=== PATIENT | female | born 1945 | race Caucasian/White ===

== ENCOUNTER 2016-04-24 06:50 | Inpatient (IN) | payer OTHER ==
[2016-04-24] VITALS (8 sets, daily range): BP systolic 89–135; BP diastolic 48–83
[~2016-04-24] VITALS: Ht 167.6 cm; Wt 54.8 kg
--- NOTE | 2016-04-24 07:40 | DIAGNOSTIC IMAGING REPORT ---
PROCEDURE: XR CHEST 1 VIEW INDICATION: HYPOXIA, initial encounter TECHNIQUE: Portable AP view 07:15 a.m. COMPARISON: Chest x-ray 10/30/2012 FINDINGS: New extensive right lung alveolar opacities. Biapical scarring. Heart size, mediastinum and pulmonary vessels are normal. Mild levoscoliosis. IMPRESSION: 1. Extensive right lung infiltrates suggestive of pneumonia.
--- NOTE | 2016-04-24 08:28 | ED NURSING NOTES ---
Clinical Report - Nurs[facility] [address] [place] [address] 04/24/2016 6:51 Patient: PHILLIP FERMIN I TRIAGE Triage time 06:55 Apr 24 2016. Acuity: LEVEL 3. Chief Complaint: ALTERED MENTAL STATUS and CONFUSED. Alert. LEATHA COMA SCORE: Leatha Coma Scale: 15- eyes open spontaneously (4); best verbal response- oriented x 4 (5); best motor response- obeys commands (6). --07:21 Kolby Mac R.N. 06:55 04/24/16. BP: 130/69. HR: 115. RR: 16. O2 saturation: 95% on non-rebreather at 13 liters/minute. Temp: 103 F (oral). Pain level now: 610. Additional comments: Lower Back. --07:21 Kolby Mac R.N. Chief Complaint: (Per , pt overdosed on muscle relaxers, but doesn't know what drug it was). --08:00 Sherry Ochoa R.N. Weight: 52.1 kg stated. Height/Length: 66 inches Per Patient. BMI: 18.5. --06:58 Kolby Mac R.N. Medications Lyrica Oral. --07:13 Kolby Mac R.N. HTN Rx. --07:13 Kolby Mac R.N. Allergies No Known Drug Allergy. --07:08 Kolby Mac R.N. Medication/allergy information source: the patient and patient's spouse. --07:21 Kolby Mac R.N. History Historian: patient. Arrived (AID 99). Primary physician (unknown). ( Lethargic affect associated with a fever. found her this morning on the beside the bed and she was incoherent and couldn't get back up on her own). This started today. Patient was last known well (about 10 hours ago). Onset. (found by about 2 hours ago). She has had weakness and trouble walking. 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 PAST MEDICAL HX: Denies current . SURGERY HX: No history of previous surgery. SOCIAL HX: Heavy tobacco smoker (cigarette)- 1-2 packs per day. History of drug use. (muscle relaxors and hydrocodone). No alcohol use. No infectious disease exposure. ABUSE ASSESSMENT: No report of abuse. FALL RISK ASSESSMENT: Fall risk assessment completed. No fall risk identified. NUTRITIONAL RISK ASSESSMENT: The nutritional risk assessment revealed no deficiencies. FUNCTIONAL ASSESSMENT: Functional assessment: no impairments noted. LEARNING NEEDS ASSESSMENT: The learning needs assessment revealed no barriers. SKIN INTEGRITY ASSESSMENT: Skin integrity risk assessment completed. No skin integrity risk identified. --07:21 Kolby Mac R.N. SOCIAL HX: Heavy tobacco smoker (cigarette)- 1-2 packs per day. --07:59 Sherry Ochoa R.N. PROBLEMS: Pelvic fx. --07:11 Kolby Mac R.N. Hypertension. --07:14 Kolby Mac R.N. ADDITIONAL SURGERIES: no known surgeries. Interventions ID band on patient. To treatment room. --07:21 Kolby Mac R.N. PHYSICAL ASSESSMENT To room via stretcher. GENERAL / NEURO / PSYCH: Decreased awareness. Patient appears neat and clean. RESPIRATORY: Respirations not labored. CVS: Cardiac rhythm: sinus tachycardia. Capillary refill less than 2 seconds. GI / : Abdomen soft. SKIN: Skin is warm and dry. Poor skin turgor. --07:17 Kolby Mac R.N. NURSING PROGRESS NOTES 07:05 04/24/2016 Site #1 started via IV in the left forearm with an 18g angiocath, with aseptic technique and good blood return; one attempt. Blood drawn: rainbow set. Labeled in the presence of the patient and sent to the lab. Saline lock flushed with 10 mL saline (start by Kolby Reyes RN). --07:20 Kolby Mac R.N. 07:24 04/24/16. Oxygen administered by nasal cannula at 4 liters (and CO2 monitor placed, CO2 36). Patient identifiers checked. Call light placed in reach. Bed placed in lowest position. Patient ready for evaluation- chart flagged. --07:24 Sherry Ochoa R.N. 07:25 04/24/16. ekg monitor tech, pulse oximeter, end tidal CO2 monitor and NIBP monitor placed on patient; cardiac surgeon- Lead II and V1; monitor alarms on. --07:25 Sherry Ochoa R.N. Care transferred and report received (from Kolby Kingsley). --07:25 Sherry Ochoa R.N. 07:50 04/24/16. Patient ID band checked for patient name and birthdate: family confirmed. Catheterized urine collected; sample sent to lab for urinalysis, culture and drug screen. Specimen labeled in the presence of the patient. --07:50 Sherry Ochoa R.N. ( Raya care given prior to cath procedure.). --07:50 Sherry Ochoa R.N. 07:45 04/24/16. BP: 116/61. HR: 107. RR: 18. O2 saturation: 97% on Venti mask at 8 liters/minute. End tidal CO2: 36 mmHg. Pain level now: 0/10. --08:02 Sherry Ochoa R.N. 08:11 04/24/2016 Started bag #1 1000 mL IV Fluids IV NS (Saline); at 1000 mL/hr via site #1 via IV pump. Confirmed 5 rights. --08:11 Sherry Ochoa R.N. 08:12 04/24/2016 Started 2 gm of Ceftriaxone IVPB in bag #1 50 mL; at 150 mL/hr over 20 minute(s) via site #1; Allergies verified and confirmed 5 rights. --08:12 Sherry Ochoa R.N. 08:34 04/24/2016 Ceftriaxone IVPB Discontinued. Total amount infused: 50 mL. --08:34 Sherry Ochoa R.N. ( H/P forms on chart.). --08:52 Olive Santana ER Tech1 08:59 04/24/2016 Duoneb (Ipratropium-Albuterol) Neb TX Nebulizer 1 unit dose given. Given by the respiratory therapist. Allergies verified and confirmed 5 rights. --08:59 Jonnie Woodard 09:01 04/24/2016 Started 500 mg of Zithromax (Azithromycin) IVPB; at 255 mL/hr over 1 hour(s) via site #1 --09:01 Luther Schroeder R.N. 09:12 04/24/2016 SOLU-MEDROL (MethylPREDNISolone Sodium Succ) IVP 125 mg given over 2 minute(s) via site #1. --09:27 Luther Schroeder R.N. 09:00. ( Patient sleeping in bed 2, sitting up in high fowlers. On oxy-mask, receiving neb treatment via mask. On cardiac surgeon, Sinus Tach with frequent uni-focal PVCs. Breath sounds with wheezes on left, breath sounds absent on right. Dr Hardin notified.). --09:33 Luther Schroeder R.N. 09:15. ( Dr Currie to examine patient). --09:40 Luther Schroeder R.N. 09:25. ( Discussed intubation with patient who is more awake now and patient refuses intubation. Dr Currie notified and will see patient). --09:41 Luther Schroeder R.N. 10:11 04/24/2016 Started 900 mg of Clindamycin IVPB in bag #1 50 mL; at 50 mL/hr over 1 minute(s) via site #1 --10:26 Luther Schroeder R.N. 10:17 04/24/2016 IV Fluids IV NS Discontinued: bag #1 infused. Total amount infused: 1000 mL. --10:42 Luther Schroeder R.N. 10:18 04/24/2016 Started bag #2 1000 mL IV Fluids IV NS (Saline); at 250 mL/hr over 4 hour(s) via site #1 --10:43 Luther Schroeder R.N. 10:19 04/24/2016 Zithromax IVPB Discontinued: bag #1 infused. Total amount infused: 50 mL. --10:44 Luther Schroeder R.N. 10:45 04/24/2016 Clindamycin IVPB Discontinued: bag #1 infused. Total amount infused: 50 mL. --10:45 Luther Schroeder R.N. 10:45 04/24/16. BP: 94/51. HR: 88. RR: 12. O2 saturation: 97%. Temp: 98 F. End tidal CO2: 38 mmHg. Pain level now: 010. --10:59 Luther Schroeder R.N. 08:45 04/24/16. BP: 101/47. HR: 100. RR: 17. O2 saturation: 97%. End tidal CO2: 36 mmHg. Pain level now: 010. --11:02 Luther Schroeder R.N. 09:45 04/24/16. BP: 97/53. HR: 100 (regular and normal rate). RR: 20. O2 saturation: 92%. End tidal CO2: 35 mmHg. Pain level now: 010. --11:04 Luther Schroeder R.N. 11:20 04/24/2016 Site #[address] upon admission; patent, no pain and no signs of infection or infiltration. Good blood return present. Flushed; flushes easily. --02:58 Kolby Mac R.N. 11:20 04/24/2016 IV Fluids IV NS Continued: upon admission at the rate of 250 mL/hr. 750 mL remaining bag #2. IV patency established. IV site checked: no pain, redness, or swelling. IV flushed thoroughly. --02:59 Kolby Mac R.N. DISPOSITION / DISCHARGE Departure time: 1120. --02:49 Kolby Mac R.N. 11:20 04/14/16. Admitted to the Critical Care Unit. Transported via stretcher by nurse with monitor, IV and O2. Report was given to a nurse via a phone call. Report included patient's care, treatment, medications, reviewed medication reconcilliation, and condition (including any recent changes or anticipated changes). All questions were answered. Report was acknowledged and care was transferred. Patient's personal items; items were placed in belongings bag and transported with the patient. --02:55 Kolby Mac R.N. Locked/Released at 04/25/2016 3:00 by Kolby Mac R.N.
--- NOTE | 2016-04-24 08:28 | ED ORDER SUMMARY ---
..... Patient: PHILLIP FERMIN I OrderSheet [facility] VisitID: [id number] [place] [address] 71y, F Registration Date/Time: 04/24/2016 ORDER SHEET Weight: 52.1 kg (stated) Allergies: No Known Drug Allergy GENERAL ORDERS: Chest 1V Urgent (07:02 04/24/2016 Luh NIETO) (Ack 7:18 CHagjose ER Metallurgist Process) (7:20 JRomanelli R.N.) Shellfish Manager (Continuous) (07:02 04/24/2016 Luh NIETO) (7:18 Dusty R.N.) (Ack 7:18 Mayra ER Metallurgist Process) CBC w Diff Urgent (07:03 04/24/2016 Luh NIETO) (Ack 7:18 Mayra ER Metallurgist Process) (8:12 LSullivan R.N.) CMP Urgent (07:03 04/24/2016 Luh NIETO) (Ack 7:18 Mayra ER Metallurgist Process) (7:20 JRomanelli R.N.) UA-Culture if indicated Urgent (07:03 04/24/2016 Luh NIETO) (Ack 7:18 Mayra ER Metallurgist Process) (7:57 LSullivan R.N.) PT with INR Urgent (07:03 04/24/2016 Luh NIETO) (Ack 7:18 Mayra ER Metallurgist Process) (7:20 Dusty R.N.) PTT Urgent (07:03 04/24/2016 Luh NIETO) (Ack 7:18 Mayra ER Metallurgist Process) (7:20 Marlyselli R.N.) Amylase Urgent (07:03 04/24/2016 Luh NIETO) (Ack 7:18 Mayra ER Metallurgist Process) (7:20 Dusty R.N.) Lipase Urgent (07:03 04/24/2016 Luh NIETO) (Ack 7:18 Mayra ER Metallurgist Process) (7:20 Marlyselli R.N.) CPK Urgent (07:03 04/24/2016 Luh NIETO) (Ack 7:18 Mayra ER Metallurgist Process) (7:20 Marlyselli R.N.) Troponin-I Urgent (07:03 04/24/2016 Luh NIETO) (Ack 7:18 CHagerty ER Metallurgist Process) (7:20 JRomanelli R.N.) Urine Drug Screen Urgent (07:03 04/24/2016 Luh NIETO) (Ack 7:18 CHagerty ER Metallurgist Process) (8:14 LSullivan R.N.) Ethyl Alcohol Urgent (07:03 04/24/2016 Luh NIETO) (Ack 7:18 CHagerty ER Metallurgist Process) (7:20 JRomanelli R.N.) ABG (G) Urgent (07:03 04/24/2016 Luh NIETO) (Ack 7:18 CHagerty ER Metallurgist Process) (8:12 LSullivan R.N.) BNP Urgent (07:03 04/24/2016 Luh NIETO) (Ack 7:18 CHagerty ER Metallurgist Process) (7:20 JRomanelli R.N.) Oxygen (2 L/min) (NC) (07:03 04/24/2016 Luh NIETO) (7:18 JRomanelli R.N.) (Ack 7:18 CHagerty ER Metallurgist Process) Pulse oximeter (07:03 04/24/2016 Luh NIETO) (7:18 JRomanelli R.N.) (Ack 7:18 CHagerty ER Metallurgist Process) EKG - ER Stat (07:03 04/24/2016 Luh NIETO) (Ack 7:18 CHagerty ER Metallurgist Process) (7:57 LNations ER Tech1) PCT (Procalcitonin) Urgent (07:55 04/24/2016 Luh NIETO) (8:12 LSullivan R.N.) Rapid Influenza Screen (Nasal Pharyngeal) (SCIENTIFIC TECHNICAL WRITER) Urgent (07:56 04/24/2016 Luh NIETO) (9:01 GMarshall R.N.) Blood Culture (No) (N/A) Urgent (07:56 04/24/2016 Luh NIETO) (8:12 LSullivan R.N.) MEDICATION ORDERS: DuoNeb Neb Tx 1 unit dose (NOW) (08:44 04/24/2016 Luh NIETO) (8:59 MRobideau) IV FLUIDS: IV Saline Lock (07:03 04/24/2016 Luh NIETO) (7:20 JRomanelli R.N.) IV NS : initial bolus 1000 mL (1000 mL/hr), then 125 mL/hr for 4h (NOW); Urgent (07:55 04/24/2016 Luh NIETO) (8:11 LSullivan R.N.) Ceftriaxone IV 2 gm/50mL (NOW) (07:57 04/24/2016 Luh NIETO) (8:12 LSullivan R.N.) Zithromax IV 500 mg/250 mL (NOW) (07:58 04/24/2016 Luh NIETO) (9:01 GMarshall R.N.) Clindamycin IV 900 mg/50mL (NOW) (08:41 04/24/2016 Luh NIETO) (Ack 9:42 GMarshall R.N.) (10:26 GMarshall R.N.) Solu-MEDROL IV 125 mg (NOW) (08:43 04/24/2016 Luh NIETO) (9:27 GMarshall R.N.) ORDER SHEET NOTES: [Electronically signed by Lyle Hardin MD (10:14 04/24/2016)] [Electronically signed by Kolby Mac R.N. (03:00 04/25/2016)] [Electronically locked/signed by Kolby Mac R.N. (03:00 04/25/2016)]
--- NOTE | 2016-04-24 08:28 | ED ORDER SUMMARY ---
..... Patient: PHILLIP FERMIN I OrderSheet [facility] VisitID: [id number] [place] [address] 71y, F Registration Date/Time: 04/24/2016 ORDER SHEET Weight: 52.1 kg (stated) Allergies: No Known Drug Allergy GENERAL ORDERS: Chest 1V Urgent (07:02 04/24/2016 Luh NIETO) (Ack 7:18 CHagjose ER Seismology Technical Officer) (7:20 JRomanelli R.N.) Weed Sprayer (Continuous) (07:02 04/24/2016 Luh NIETO) (7:18 Dusty R.N.) (Ack 7:18 Mayra ER Seismology Technical Officer) CBC w Diff Urgent (07:03 04/24/2016 Luh NIETO) (Ack 7:18 Mayra ER Seismology Technical Officer) (8:12 LSullivan R.N.) CMP Urgent (07:03 04/24/2016 Luh NIETO) (Ack 7:18 Mayra ER Seismology Technical Officer) (7:20 JRomanelli R.N.) UA-Culture if indicated Urgent (07:03 04/24/2016 Luh NIETO) (Ack 7:18 Mayra ER Seismology Technical Officer) (7:57 LSullivan R.N.) PT with INR Urgent (07:03 04/24/2016 Luh NIETO) (Ack 7:18 Mayra ER Seismology Technical Officer) (7:20 Dusty R.N.) PTT Urgent (07:03 04/24/2016 Luh NIETO) (Ack 7:18 Mayra ER Seismology Technical Officer) (7:20 Marlyselli R.N.) Amylase Urgent (07:03 04/24/2016 Luh NIETO) (Ack 7:18 Mayra ER Seismology Technical Officer) (7:20 Dusty R.N.) Lipase Urgent (07:03 04/24/2016 Luh NIETO) (Ack 7:18 Mayra ER Seismology Technical Officer) (7:20 Marlyselli R.N.) CPK Urgent (07:03 04/24/2016 Luh NIETO) (Ack 7:18 Mayra ER Seismology Technical Officer) (7:20 Marlyselli R.N.) Troponin-I Urgent (07:03 04/24/2016 Luh NIETO) (Ack 7:18 CHagerty ER Seismology Technical Officer) (7:20 JRomanelli R.N.) Urine Drug Screen Urgent (07:03 04/24/2016 Luh NIETO) (Ack 7:18 CHagerty ER Seismology Technical Officer) (8:14 LSullivan R.N.) Ethyl Alcohol Urgent (07:03 04/24/2016 Luh NIETO) (Ack 7:18 CHagerty ER Seismology Technical Officer) (7:20 JRomanelli R.N.) ABG (G) Urgent (07:03 04/24/2016 Luh NIETO) (Ack 7:18 CHagerty ER Seismology Technical Officer) (8:12 LSullivan R.N.) BNP Urgent (07:03 04/24/2016 Luh NIETO) (Ack 7:18 CHagerty ER Seismology Technical Officer) (7:20 JRomanelli R.N.) Oxygen (2 L/min) (NC) (07:03 04/24/2016 Luh NIETO) (7:18 JRomanelli R.N.) (Ack 7:18 CHagerty ER Seismology Technical Officer) Pulse oximeter (07:03 04/24/2016 Luh NIETO) (7:18 JRomanelli R.N.) (Ack 7:18 CHagerty ER Seismology Technical Officer) EKG - ER Stat (07:03 04/24/2016 Luh NIETO) (Ack 7:18 CHagerty ER Seismology Technical Officer) (7:57 LNations ER Tech1) PCT (Procalcitonin) Urgent (07:55 04/24/2016 Luh NIETO) (8:12 LSullivan R.N.) Rapid Influenza Screen (Nasal Pharyngeal) (CNC MANUFACTURING ENGINEER) Urgent (07:56 04/24/2016 Luh NIETO) (9:01 GMarshall R.N.) Blood Culture (No) (N/A) Urgent (07:56 04/24/2016 Luh NIETO) (8:12 LSullivan R.N.) MEDICATION ORDERS: DuoNeb Neb Tx 1 unit dose (NOW) (08:44 04/24/2016 Luh NIETO) (8:59 MRobideau) IV FLUIDS: IV Saline Lock (07:03 04/24/2016 Luh NIETO) (7:20 JRomanelli R.N.) IV NS : initial bolus 1000 mL (1000 mL/hr), then 125 mL/hr for 4h (NOW); Urgent (07:55 04/24/2016 Luh NIETO) (8:11 LSullivan R.N.) Ceftriaxone IV 2 gm/50mL (NOW) (07:57 04/24/2016 Luh NIETO) (8:12 LSullivan R.N.) Zithromax IV 500 mg/250 mL (NOW) (07:58 04/24/2016 Luh NIETO) (9:01 GMarshall R.N.) Clindamycin IV 900 mg/50mL (NOW) (08:41 04/24/2016 Luh NIETO) (Ack 9:42 GMarshall R.N.) (10:26 GMarshall R.N.) Solu-MEDROL IV 125 mg (NOW) (08:43 04/24/2016 Luh NIETO) (9:27 GMarshall R.N.) ORDER SHEET NOTES: [Electronically signed by Lyle Hardin MD (10:14 04/24/2016)] [Electronically signed by Kolby Mac R.N. (03:00 04/25/2016)] [Electronically locked/signed by Kolby Mac R.N. (03:00 04/25/2016)]
--- NOTE | 2016-04-24 08:28 | ED CLINICAL REPORT ---
Clinical Report - Physicians/Mid Levels [facility] [address] [place] [address] 04/24/2016 6:51 Patient: PHILLIP FERMIN I Time Seen: 07:00. Arrived- By private vehicle. Historian- patient. History limited by altered mental status and vague historian. Physical Exam limited by poor cooperation. HISTORY OF PRESENT ILLNESS Chief Complaint: FEVER, DYSPNEA, COUGH and WEAKNESS. This started last night and is still present. It was gradual in onset and has been constant and waxing/waning. The patient has had fatigue and weakness. (the patient is only able to provide a limited history. However her says that recently she was treated as an outpatient for pneumonia. Initially she apparently was feeling better but then over the past few days felt that it was getting worse again. last night he said that she was restless throughout the night and this morningshe tried to get up and collapsed and was not able to get back up. She complains of a cough but is not able to tell me whether or not she produces any sputum. EMS reports that she was markedly hypoxic.). REVIEW OF SYSTEMS The patient has had chills, muscle aches, fatigue, a cough and difficulty breathing. No calf pain, chest pain, pedal edema, palpitations or abdominal pain. No constipation, diarrhea, nausea, vomiting or urinary problems. All systems otherwise negative, except as recorded above. PAST HISTORY Problems: Hypertension. Pelvic fx. Additional Surgeries: no known surgeries. Medications: HTN Rx. Lyrica Oral. Allergies: No Known Drug Allergy. SOCIAL HISTORY Current every day heavy tobacco smoker (cigarette)- more than 2 packs per day. No alcohol use. She lives with spouse. FAMILY HISTORY Unable to obtain family medical history due to patient's distress. PHYSICAL EXAM Vital Signs: 04/24/2016 06:55 BP: 130/69. HR: 115. RR: 16. O2 saturation: 95%. Temp: 103 F. Pain level now: 6/10. Vital signs have not been reviewed. Appearance: The patient is somnolent. Eyes: Pupils equal, round and reactive to light. ENT: Dry mucous membranes present. No pharyngeal erythema. Neck: Neck supple. CVS: 1/6 systolic murmur. Respiratory: Decreased air movement. Moderate rhonchi present in the right lung base posteriorly and mid-lung posteriorly. Abdomen: No visible injury. Soft and nontender. Bowel sounds normal. No organomegaly. No mass. Back: Normal inspection. Extremities: Extremities exhibit normal ROM. No calf tenderness. No lower extremity edema. LABS, X-RAYS, AND EKG EKG: Rate: 106. Ectopic beats. Premature atrial contractions. Right axis deviation. Non-specific ST segment / T wave abnormalities. Prior EKG unavailable. The study has been independently viewed by me. Chest X-ray: Infiltrate in the right middle lobe and right lower lobe. Consistent with pneumonia. The X-rays were independently viewed by me. Laboratory Tests: UA-Culture if indicated: (RAD: 04/24/2016 07:43) ( MsgRcvd 04/24/2016 08:50) Final results Test Result Flag Units (Reference) URINE COLOR YELLOW URINE APPEARANCE SL CLOUDY URINE GLUCOSE NEGATIVE (NEGATIVE) URINE BILIRUBIN NEGATIVE (NEGATIVE) URINE KETONE NEGATIVE (NEGATIVE) URINE SPECIFIC GRAVITY 1.015 (1.010-1.030) URINE PH 7.0 (5.0-8.0) URINE PROTEIN 1+ (NEGATIVE) URINE UROBILINOGEN 0.2 EU/dL (0.2-1.0) URINE NITRITE POSITIVE (NEGATIVE) URINE BLOOD 1+ (NEGATIVE) URINE LEUK ESTERASE NEGATIVE (NEGATIVE) URINE RBC 1-3 rbc/hpf (0-1) URINE WBC 1-3 wbc/hpf (0-1) URINE EPITHELIAL CELLS 3-5 EPI/hpf (0-5) URINE BACTERIA MANY (4+) (NONE SEEN) URINE COMMENT CULTURE INDICATED URINE CULTURES ARE SET-UP BASED ON THE FOLLOWING CRITERIA:POSITIVE NITRITEPOSITIVE LEUKOCYTE ESTERASEGREATER THAN 10 WHITE BLOOD CELLSMODERATE (2+) OR GREATER BACTERIA CBC w Diff: (RAD: 04/24/2016 07:01) ( NmgRcvd 04/24/2016 08:16) Final results Test Result Flag Units (Reference) WHITE BLOOD COUNT 12.8 H K/uL (4.5-11.5) RED BLOOD COUNT 5.81 H M/uL (4.00-5.20) HEMOGLOBIN 17.1 H gm/dL (12.0-16.0) HEMATOCRIT 52.1 H % (36.0-46.0) MEAN CELL VOLUME 90 fL (80-100) MEAN CORPUSCULAR HGB 30 pg (26-34) MEAN CORPUSCULAR HGB CONC 33 g/dL (31-37) RED CELL DISTRIBUTION WIDTH 15.7 H % (11.6-14.8) PLATELET COUNT 189 K/uL (150-400) NEUTROPHIL % 88.6 H % (50-75) LYMPH % 6.7 L % (25-40) MONO % 3.7 % (3-14) EOSINOPHIL % 0.6 % (0-4) BASOPHIL % 0.4 % (0-2) PT with INR: (RAD: 04/24/2016 07:01) ( MsgRcvd 04/24/2016 08:27) Final results Test Result Flag Units (Reference) INR 1.0 (0.8-1.2) Low Intensity Therapy: INR 1.5-2.0 PT range 18.5-23.1Mod.Intensity Therapy: INR 2.0-3.0 PT range 23.1-31.5High Intensity Therapy: INR 2.5-3.5 PT range 27.4-35.5High Intensity Therapy 2: INR 3.0-4.0 PT range 31.5-39.3 APTT 35 H SECONDS (24-34) Urine Drug Screen: (RAD: 04/24/2016 07:03) ( MsgRcvd 04/24/2016 08:18) Final results Test Result Flag Units (Reference) AMPHETAMINE/METHAMPHETAMINE NEGATIVE (NEGATIVE) BARBITURATE NEGATIVE (NEGATIVE) BENZODIAZEPINE NEGATIVE (NEGATIVE) CANNABINOID POSITIVE H (NEGATIVE) COCAINE NEGATIVE (NEGATIVE) ECSTASY NEGATIVE (NEGATIVE) METHADONE NEGATIVE (NEGATIVE) OPIATE POSITIVE H (NEGATIVE) The urine drug screen is a qualitative screening test fordrug overdose and abuse. All screen results should beconsidered as presumptive.Drugs screened for are as follows:BenzodiazepinesCocaineAmphetamines/MetamphetaminesTHC (Tetrahydrocannabinol)OpiatesBarbituratesEcstasyMethadonePositive results are unconfirmed. For confirmation, notifythe lab for the specimen to be sent to the reference lab.All confirmations must be performed by a differentmethodology.The ingestion of natural herbal and plant productscontaining Ephedra/Ephedra metabolites can produce in urineone or more substances capable of cross reacting withamphetamine/methamphetamine immunoassays. These testsprovide a preliminary result only. A more specificalternative chemical method must be used to obtain aconfirmed analytical result. BNP: (RAD: 04/24/2016 07:01) ( MsgRcvd 04/24/2016 08:36) Final results Test Result Flag Units (Reference) B-TYPE NATRIURETIC PEPTIDE 56.3 pg/ml (5-100) CMP: (RAD: 04/24/2016 07:01) ( MsgRcvd 04/24/2016 08:17) Final results Test Result Flag Units (Reference) GLUCOSE 95 mg/dL (70-110) BUN 13 mg/dL (7-18) CREATININE 0.6 mg/dL (0.6-1.3) Estimated GFR >60 mL/min Estimated GFR- >60 mL/min Note: Persistent reduction over 3 months in eGFR<60 mL/min/1.73 m2 defines CKD. Patients with eGFR values>=60 mL/min/1.73 m2 may also have CKD if evidence ofpersistent proteinuria. Additional information may be foundat www.kidney.org. SODIUM 140 mmol/L (136-145) POTASSIUM 3.3 L mmol/L (3.5-5.1) CHLORIDE 102 mmol/L (98-107) CARBON DIOXIDE 36 H mmol/L (21-32) CALCIUM 8.1 L mg/dL (8.5-10.1) TOTAL PROTEIN 6.6 g/dL (6.4-8.2) ALBUMIN 2.8 L g/dL (3.3-5.0) BILIRUBIN, TOTAL 0.6 mg/dL (0.0-1.0) ALKALINE PHOSPHATASE 62 U/L (46-116) AST (SGOT) 26 U/L (15-37) ALT (SGPT) 21 U/L (12-78) LIPASE 66 L U/L (73-393) AMYLASE 29 U/L (25-115) CPK 57 U/L (24-260) TROPONIN I 0.06 ng/mL (0.00-1.5) TROPONIN REFERENCE RANGE:<0.1 NEGATIVE0.1-1.5 INDETERMINANT>1.5 POSITIVE ETHYL ALCOHOL <3 L mg/dL (3-10) ABG: (RAD: 04/24/2016 07:03) ( MsgRcvd 04/24/2016 07:32) Final results Test Result Flag Units (Reference) FIO2 36 % (20-101) ABG MODE OF DELIVERY NC MODIFIED WALDO TEST POSITIVE? YES LITERS PER MIN. 4 L/MIN (0-20) ARTERIAL BLOOD GAS SITE RR ARTERIAL BLOOD GAS pH 7.42 (7.35-7.45) ABG PCO2 56.3 H mmHg (35-45) ABG PO2 57.6 L mmHg (60.0-80.0) ABG BASE EXCESS 10.5 *H mmol/L (-6.0--6.0) ABG HCO3 36.6 *H mmol/L (20.0-26.0) ABG TCO2 38.3 *H mmol/L (24.0-30.0) ABG AmDfN7g 132.6 H mmHg (7.0-14.0) *NOTE: Normal rangeis based on aFIO2 of 21% ABG SAT O2 88.8 L % (95.1-100.0) ABG TOTAL HEMOGLOBIN 16.5 H g/dL (12.0-16.0) ABG O2 HEMOGLOBIN 77.8 *L % (95.0-100.0) ABG CARBOXYHEMOGLOBIN 12.0 H % (0.5-1.5) ABG METHEMOGLOBIN 0.4 % (0.4-1.5) ABG RHEMOGLOBIN 9.8 % Rapid Influenza Screen: (RAD: 04/24/2016 07:00) ( MsgRcvd 04/24/2016 09:35) Final results SPECIMEN DESCRIPTION: ELECTRON BEAM PH[employer] 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 PROGRESS AND PROCEDURES Course of Care: The patient's symptoms are unchanged. Vital signs have been reviewed. Physical exam findings are unchanged. Critical care performed (90 minutes). Time includes: direct patient care, patient reassessment, coordination of patient care, interpretation of data (laboratory data, pulse oximetry, arterial blood gases and chest xrays), review of patient's medical records, medical consultation and documentation of patient care. Discussed case with hospitalist, (Rosey). Reviewed test results and need for additional work-up. Agreed upon decision to admit. Patient/family counseled. Old medical records ordered. Old records unavailable. Disposition orders written (in [facility]). Disposition: Admitted to the Critical Care Unit. CLINICAL IMPRESSION Pneumonia. COPD. Urinary tract infection. Hypoxia. (Electronically signed by Lyle Hardin MD 04/24/2016 10:14)
--- NOTE | 2016-04-24 18:40 | History & Physical Report ---
Medications and Allergies Allergies Coded Allergies: No Known Drug Allergy (05/27/01)
--- NOTE | 2016-04-24 18:40 | History & Physical Report ---
Medications and Allergies Allergies Coded Allergies: No Known Drug Allergy (05/27/01)
--- NOTE | 2016-04-24 20:23 | HISTORY AND PHYSICAL ---
ADMITTED: 04/24/2016 HISTORIAN: Information source, patient herself. Reliability: Good. CHIEF COMPLAINT: 1. Altered mental status HISTORY OF PRESENT ILLNESS: A 71-year-old female patient with the past medical history of hypertension, prediabetes, polyneuropathy, was brought in by ambulance for altered mental status. In emergency department, she was found to have extensive right lung infiltrate suggestive of pneumonia with acute hypoxic, hypercapnic respiratory failure, altered mental status, for this reason, she is admitted to hospital. As per the patient and her , she was fine up until 2 weeks back when she had developed pneumonia and was getting oral antibiotic prescribed by her primary care doctor. Over time she could not get better and was feeling more tired and fatigued everyday and today morning, as per her , he noticed her sitting down on the floor, confused, disoriented. He called ambulance and brought her to [facility] and she is admitted to hospital for sepsis secondary to pneumonia, AMS, and possible COPD. MEDICAL/SURGICAL HISTORY: Past medical history: Hypertension, prediabetes, polyneuropathy. Past surgical history: Tonsillectomy. HOME MEDICATIONS: 1. PROAIR INHALER 2 PUFFS PRN 2. AMLODIPINE 5MG PO DAILY 3.ATORVASTATIN 10 MG PO DAILY 4. CARISOPRODOL 350MG PO QID 5. CYCLOBENZAPARINE 10MG PO TID 6. HCTZ 12.5MG PO DIALY 7. LEUFLONIDE 150MG PO BID 8. NORTRIPTYLINE 10MG PO DAILY 9. PREDNISONE 10 MG PO DIALY 10. LYRICA 225 MG PO BID 11. SODIUM FLUORIDE GEL 1 DOSE TOPICAL DAILY ALLERGIES: 1. NO KNOWN DRUG ALLERGIES. SOCIAL HISTORY: She lives in [place] with her . 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 Has pets, 2 dogs. Chronic history of smoking, still smokes 1-1/2 to 2 packs per day. Denies any alcohol use. Denies any drug use. FAMILY HISTORY: Her mother of lung cancer. REVIEW OF SYSTEMS: She denied any fever. Complains of chills, sweats, weakness, malaise. She denies any pain, vision, conjunctival inflammation. She denies any nasal congestion, nasal discharge, mouth pain, mouth swelling, throat pain, throat swelling. She denies any cough, shortness of breath, wheezing, pleuritic pain. She denies any chest pain, palpitation, orthopnea, PND, edema. She denies any nausea, vomiting, abdominal pain, diarrhea, constipation, melena, hematochezia. She denies any dysuria, frequency, incontinence. She denies any musculoskeletal pain. She denies any weakness, numbness. Her complained of confusion, altered mental status; it is getting better. PHYSICAL EXAMINATION: VITAL SIGNS: Pulse 93 per minute, respiratory rate 14 per minute, blood pressure 135/76, saturations 98% on 6 L of VentiMask. GENERAL: The patient is alert, awake, oriented x3, forgetful. HEENT: Head: Atraumatic, normocephalic. Eyes: Pupils equally reactive to light. Moist mucous membranes. LUNGS: Bilateral rhonchi, more on the right side. NECK: Supple. No JVD. HEART: Regular rate and rhythm. Normal S1 and S2. ABDOMEN: Normal bowel sounds. Soft, nontender. No guarding. No rigidity. EXTREMITIES: No edema. NEUROLOGIC: No lateralizing signs, grossly intact. LAB/IMAGING: Laboratories: ABG: PH 7.42, pCO2 56.3, pO2 57.6, bicarb 36, O2 saturations 88. Sodium 140, potassium 3.3, chloride 102, bicarb 36, BUN 13, creatinine 0.6, GFR more than 60, glucose 95, calcium 8.1. Creatinine kinase 57. Total bili 0.6, AST 26, ALT 21, alk phos 62, total protein 6.6, albumin 2.8, amylase 29, lipase 66. Troponin 0.6. BNP is 56. INR of 1. PTT 35. WBC 12.8, hemoglobin 17.1, hematocrit 52.1, neutrophils 38.6%, lymphocytes 6.7%, platelets 189,000. Toxicology: Urine opiates positive, urine cannabinoids positive. Ethyl alcohol level is less than 3. UA is positive for infection signs including UA nitrite positive, bacteria many, WBC 3-5. Lactic acid 0.9. Procalcitonin less than 0.5. Blood culture, urine culture pending. Influenza screen negative. Imaging: Chest x-ray: Extensive right lung infiltrates suggestive of pneumonia. IMPRESSION/PLAN: 1. A 71-year-old female admitted with altered mental status and acute hypoxic hypercapnic respiratory failure, due to sepsis, due to pneumonia, started on IV antibiotics Zosyn, vancomycin, and Zithromax. She will be given IV hydration. Continue with her oxygen supplementation with Ventimask for now, titrate down as needed. Send urine for Legionella and Streptococcus pneumoniae antigen. Follow up urine and blood cultures. 2. Hypertension. The patient has a history of hypertension. She does not remember her home medications. We will start on low-dose lisinopril for now. Monitor her blood pressure. Get home meds list. 3. Prediabetes. Check hemoglobin A1c. Check blood sugar level before meals, at bedtime. Start on sliding scale insulin as needed. 4. Urinary tract infection. Urinalysis consistent with urinary tract infection. The patient is already on Zosyn and vancomycin. We will follow urine culture. 5. Deep venous thrombosis prophylaxis: Lovenox. Gastrointestinal prophylaxis: Proton pump inhibitor. 6. The patient's condition guarded. Possible discharge in couple of days.
--- NOTE | 2016-04-25 03:01 | ED MAR SUMMARY ---
..... Medication Administration Record [facility] [address] [place] [address] Patient: PHILLIP FERMIN I Visit ID: [id number] 71y, F Weight: 52.1 kg Height/Length: 66 in BMI: 18.5 ALLERGIES: No Known Drug Allergy Start 08:11 04/24/2016 Sherry Ochoa R.N., Stop 10:17 04/24/2016 Luther Schroeder R.N. Medication Administered: IV NS (SALINE), Dose: IV Fluids, Rate: 1000 mL/hr, Dispensed: 1000 mL bag, Site: #1 left forearm. Medication Ordered: IV NS : initial bolus 1000 mL (1000 mL/hr), then 125 mL/hr for 4h (NOW); Urgent. Start 08:12 04/24/2016 Sherry Ochoa R.N., Stop 08:34 04/24/2016 Sherry Ochoa R.N. Medication Administered: CEFTRIAXONE [IVPB], Dose: 2 gm IVPB over 20 minute(s), Rate: 150 mL/hr, Dispensed: 50 mL bag, Site: #1 left forearm. Medication Ordered: Ceftriaxone IV 2 gm/50mL (NOW). Given 08:59 04/24/2016 Jonnie Woodard, Medication Administered: DUONEB [NEB TX] (IPRATROPIUM-ALBUTEROL), Dose: 1 unit dose Nebulizer Neb TX. Medication Ordered: DuoNeb Neb Tx 1 unit dose (NOW). Start 09:01 04/24/2016 Luther Schroeder R.N., Stop 10:19 04/24/2016 Luther Schroeder R.N. Medication Administered: ZITHROMAX [IVPB] (AZITHROMYCIN), Dose: 500 mg IVPB over 1 hour(s), Rate: 255 mL/hr, Site: #1 left forearm. Medication Ordered: Zithromax IV 500 mg/250 mL (NOW). Given 09:12 04/24/2016 Luther Schroeder R.N. Medication Administered: SOLU-MEDROL [IVP] (METHYLPREDNISOLONE SODIUM SUCC), Dose: 125 mg IVP over 2 minute(s), Site: #1 left forearm. Medication Ordered: Solu-MEDROL IV 125 mg (NOW). Start 10:11 04/24/2016 Luther Schroeder RTawny, Stop 10:45 04/24/2016 Luther Schroeder R.N. Medication Administered: CLINDAMYCIN [IVPB], Dose: 900 mg IVPB over 1 minute(s), Rate: 50 mL/hr, Dispensed: 50 mL bag, Site: #1 left forearm. Medication Ordered: Clindamycin IV 900 mg/50mL (NOW). Start 10:18 04/24/2016 Luther Schroeder RTawny, Continued Upon Admission 11:20 04/24/2016 Kolby Mac RLorraineNLorraine Medication Administered: IV NS (SALINE), Dose: IV Fluids over 4 hour(s), Rate: 250 mL/hr, Dispensed: 1000 mL bag, Site: #1 left forearm. Medication Ordered: IV NS : initial bolus 1000 mL (1000 mL/hr), then 125 mL/hr for 4h (NOW); Urgent.
--- NOTE | 2016-04-25 03:01 | ED MAR SUMMARY ---
..... Medication Administration Record [facility] [address] [facility] [place] [address] Patient: PHILLIP FERMIN I Visit ID: [id number] 71y, F Weight: 52.1 kg Height/Length: 66 in BMI: 18.5 ALLERGIES: No Known Drug Allergy Start 08:11 04/24/2016 Sherry Ochoa R.N., Stop 10:17 04/24/2016 Luther Schroeder R.N. Medication Administered: IV NS (SALINE), Dose: IV Fluids, Rate: 1000 mL/hr, Dispensed: 1000 mL bag, Site: #1 left forearm. Medication Ordered: IV NS : initial bolus 1000 mL (1000 mL/hr), then 125 mL/hr for 4h (NOW); Urgent. Start 08:12 04/24/2016 Sherry Ochoa R.N., Stop 08:34 04/24/2016 Sherry Ochoa R.N. Medication Administered: CEFTRIAXONE [IVPB], Dose: 2 gm IVPB over 20 minute(s), Rate: 150 mL/hr, Dispensed: 50 mL bag, Site: #1 left forearm. Medication Ordered: Ceftriaxone IV 2 gm/50mL (NOW). Given 08:59 04/24/2016 Jonnie Woodard, Medication Administered: DUONEB [NEB TX] (IPRATROPIUM-ALBUTEROL), Dose: 1 unit dose Nebulizer Neb TX. Medication Ordered: DuoNeb Neb Tx 1 unit dose (NOW). Start 09:01 04/24/2016 Luther Schroeder R.N., Stop 10:19 04/24/2016 Luther Schroeder R.N. Medication Administered: ZITHROMAX [IVPB] (AZITHROMYCIN), Dose: 500 mg IVPB over 1 hour(s), Rate: 255 mL/hr, Site: #1 left forearm. Medication Ordered: Zithromax IV 500 mg/250 mL (NOW). Given 09:12 04/24/2016 Luther Schroeder R.N. Medication Administered: SOLU-MEDROL [IVP] (METHYLPREDNISOLONE SODIUM SUCC), Dose: 125 mg IVP over 2 minute(s), Site: #1 left forearm. Medication Ordered: Solu-MEDROL IV 125 mg (NOW). Start 10:11 04/24/2016 Luther Schroeder RTawny, Stop 10:45 04/24/2016 Luther Schroeder R.N. Medication Administered: CLINDAMYCIN [IVPB], Dose: 900 mg IVPB over 1 minute(s), Rate: 50 mL/hr, Dispensed: 50 mL bag, Site: #1 left forearm. Medication Ordered: Clindamycin IV 900 mg/50mL (NOW). Start 10:18 04/24/2016 Luther Schroeder RTawny, Continued Upon Admission 11:20 04/24/2016 Kolby Mac RLorraineNLorraine Medication Administered: IV NS (SALINE), Dose: IV Fluids over 4 hour(s), Rate: 250 mL/hr, Dispensed: 1000 mL bag, Site: #1 left forearm. Medication Ordered: IV NS : initial bolus 1000 mL (1000 mL/hr), then 125 mL/hr for 4h (NOW); Urgent.
--- NOTE | 2016-04-25 03:01 | ED MED RECONCILIATION SUMMARY ---
Patient: PHILLIP FERMIN I Medication Reconciliation Report [facility] VisitID: [id number] [address] [place] [address] 71y, F Registration Date/Time: 04/24/2016 Weight: 52.1 kg Height/Length: 66 in. BMI: 18.5 ALLERGIES: No Known Drug Allergy The patient's Home Medications are listed below: THE FOLLOWING MEDICATIONS NEED TO BE RECONCILED: HTN Rx Lyrica Oral The source(s) of the original Home Medication information: patient patient's spouse The following Medications were given to the patient in the Emergency Department: IV NS IV Fluids bolus 0, then 1000 mL/hr, administered: 04/24/2016 8:11:00 AM Ceftriaxone [IVPB] IVPB bolus 0, then 2 gm 150 mL/hr, administered: 04/24/2016 8:12:00 AM Duoneb [Neb Tx] Neb TX 1 unit dose, administered: 04/24/2016 8:59:00 AM Zithromax [IVPB] IVPB bolus 0, then 500 mg 255 mL/hr, administered: 04/24/2016 9:01:00 AM SOLU-MEDROL [IVP] IVP 125 mg, administered: 04/24/2016 9:12:00 AM Clindamycin [IVPB] IVPB bolus 0, then 900 mg 50 mL/hr, administered: 04/24/2016 10:11:00 AM IV NS IV Fluids bolus 0, then 250 mL/hr, administered: 04/24/2016 10:18:00 AM The following Medications were prescribed to the patient: None.
--- NOTE | 2016-04-25 03:01 | ED DISCHARGE INSTRUCTIONS ---
Patient: PHILLIP FERMIN I General Instructions [facility] VisitID: [id number] [address] [place] [address] 71y, F Registration Date/Time: 04/24/2016 Pneumonia. COPD. Urinary tract infection. Hypoxia. (Electronically signed by Lyle Hardin MD 04/24/2016 10:14)
--- NOTE | 2016-04-25 03:01 | ED MED RECONCILIATION SUMMARY ---
Patient: PHILLIP FERMIN I Medication Reconciliation Report [facility] VisitID: [id number] [address] [place] [address] 71y, F Registration Date/Time: 04/24/2016 Weight: 52.1 kg Height/Length: 66 in. BMI: 18.5 ALLERGIES: No Known Drug Allergy The patient's Home Medications are listed below: THE FOLLOWING MEDICATIONS NEED TO BE RECONCILED: HTN Rx Lyrica Oral The source(s) of the original Home Medication information: patient patient's spouse The following Medications were given to the patient in the Emergency Department: IV NS IV Fluids bolus 0, then 1000 mL/hr, administered: 04/24/2016 8:11:00 AM Ceftriaxone [IVPB] IVPB bolus 0, then 2 gm 150 mL/hr, administered: 04/24/2016 8:12:00 AM Duoneb [Neb Tx] Neb TX 1 unit dose, administered: 04/24/2016 8:59:00 AM Zithromax [IVPB] IVPB bolus 0, then 500 mg 255 mL/hr, administered: 04/24/2016 9:01:00 AM SOLU-MEDROL [IVP] IVP 125 mg, administered: 04/24/2016 9:12:00 AM Clindamycin [IVPB] IVPB bolus 0, then 900 mg 50 mL/hr, administered: 04/24/2016 10:11:00 AM IV NS IV Fluids bolus 0, then 250 mL/hr, administered: 04/24/2016 10:18:00 AM The following Medications were prescribed to the patient: None.
--- NOTE | 2016-04-25 03:01 | ED DISCHARGE INSTRUCTIONS ---
Patient: PHILLIP FERMIN I General Instructions [facility] VisitID: [id number] [address] [place] [address] 71y, F Registration Date/Time: 04/24/2016 Pneumonia. COPD. Urinary tract infection. Hypoxia. (Electronically signed by Lyle Hardin MD 04/24/2016 10:14)
[2016-04-25 03:02] VITALS: BP 147/68
[2016-04-25 07:00] VITALS: BP 148/77
[2016-04-25 10:39] VITALS: BP 136/68
[2016-04-25] MEDS ORDERED: NORTRIPTYLINE H10 MG PO (11:27)
[2016-04-25] MEDS ORDERED: CARISOPRODOL350 MG PO (11:28)
[2016-04-25] MEDS ORDERED: VICODIN HP1 TA1 PO (11:28)
[2016-04-25] MEDS ORDERED: AMLODIPINE BES2.5 MG PO (11:29)
[2016-04-25] MEDS ORDERED: ATORVASTATIN CA10 MG PO (11:29)
[2016-04-25] MEDS ORDERED: ARAVA20 MG PO (11:41)
[2016-04-25] MEDS ORDERED: PREDNISONE20 MG PO (11:41)
[2016-04-25] MEDS ORDERED: LYRICA100 MG PO (11:42)
[2016-04-25] MEDS ORDERED: CYCLOBENZAPRINE10 MG PO (11:42)
[2016-04-25] MEDS ORDERED: HYDROCHLOROTH12.5 MG PO (11:44)
[2016-04-25] MEDS ORDERED: DITROPAN EQUIVAL5 MG PO (11:45)
[2016-04-25] MEDS ORDERED: PROAIR HFA IN (11:45)
[2016-04-25] MEDS ORDERED: [UNRECOGNIZED DRUG - CODE] TOP (11:46)
[2016-04-25 14:28] VITALS: BP 121/55
--- NOTE | 2016-04-25 16:46 | Progress Note ---
Subjective General patient says she is feeling better then yesterday, c/o pain in her legs Constitutional Denies: Fever, Chills, Sweats, Weakness. Eyes Denies: Vision Change, Conjunctival Inflammation, Eyelid Inflammation. ENT Denies: Nasal Congestion, Mouth Pain, Mouth Swelling. Respiratory Cough, Dry. Denies: SOB w/exertion, Wheezing, Hemoptysis. Gastrointestinal Denies: Nausea, Vomiting, Abdominal Pain, Diarrhea, Constipation. Genitourinary Denies: Dysuria, Frequency, Incontinence. Musculoskeletal Denies: Back Pain. Physical Exam Vital Signs / I&Os Vital Signs Date Time Temp Pulse Resp B/P Pulse O2 O2 Flow FiO2 Ox Delivery Rate 04/25 1428 98.6 100 16 121/55 99 Nasal 1.5 Cannula 04/25 1338 1.5 04/25 1039 98.1 102 19 136/68 96 Nasal 1.0 Cannula 04/25 0830 Nasal 1.0 Cannula 04/25 0730 1.0 04/25 0700 98.8 109 21 148/77 96 Nasal 2.0 Cannula 04/25 0302 98.1 104 16 147/68 97 Nasal 2.0 Cannula 04/25 0152 92 14 99 2.0 04/24 2320 89 14 100 2.0 04/24 2251 98.1 88 16 117/54 100 Nasal 2.0 Cannula 04/24 2131 2.0 04/24 2030 Nasal 2.0 Cannula 04/24 2002 92 15 96 4.0 04/24 1910 98.1 04/24 1800 87 17 129/75 97 Mask 6.0 04/24 1711 93 14 135/76 98 Mask 6.0 I&O 04/24 0800 04/24 1600 04/25 0000 Intake Total 1680 Output Total 500 2350 Balance -500 -670 General Appearance Alert, Oriented X3, No acute distress HEENT Normal exam, PERRLA, Moist mucous membranes Lungs bilateral ronchi Neck Supple, No JVD Cardiovascular Normal exam, Regular rate and rhythm, Normal S1 and S2 Abdomen Normal bowel sounds, Soft, No tenderness, No guarding Extremities No edema Neurological No lateralizing signs LAB Results Laboratory Tests 04/25 04/25 04/25 04/25 0405 0405 0500 0821 Chemistry Plasma Sodium (136 - 145 mmol/L) 144 Plasma Potassium (3.5 - 5.1 mmol/L) 3.2 Plasma Chloride (98 - 107 mmol/L) 109 CO2 (Enzymatic) (21 - 32 mmol/L) 30 BUN (7 - 18 mg/dL) 8 Creatinine (0.6 - 1.3 mg/dL) 0.4 Est GFR ( Amer) (mL/min) >60 Est GFR (Non-Af Amer) (mL/min) >60 Glucose (70 - 110 mg/dL) 116 Hemoglobin A1c % (4.5 - 6.2 %) 5.2 Cancelled Plasma Calcium (8.5 - 10.1 mg/dL) 7.7 Plasma Magnesium (1.8 - 2.4 mg/dL) 1.8 Total Bilirubin (0.0 - 1.0 mg/dL) 0.7 Direct Bilirubin (0 - 0.3 mg/dL) 0.2 AST (15 - 37 U/L) 28 ALT (12 - 78 U/L) 22 Alkaline Phosphatase (46 - 116 U/L) 49 Total Protein (6.4 - 8.2 g/dL) 6.0 Albumin (3.3 - 5.0 g/dL) 2.4 Triglycerides (30 - 200 mg/dL) 62 Cholesterol (140 - 200 mg/dL) 99 LDL Cholesterol, Calc (mg/dL) 42 HDL Cholesterol (32 - 96 mg/dL) 45 LDL/HDL Ratio 0.9 Cholesterol/HDL Ratio 2.2 Coronary Risk Interp (0.4 - 1.0) 0.4 Hematology WBC (4.5 - 11.5 K/uL) 15.6 RBC (4.00 - 5.20 M/uL) 5.07 Hgb (12.0 - 16.0 gm/dL) 14.9 Hct (36.0 - 46.0 %) 46.0 MCV (80 - 100 fL) 91 MCH (26 - 34 pg) 29 RDW (11.6 - 14.8 %) 16.4 Neut % (Auto) (50 - 75 %) 88.5 Lymph % (Auto) (25 - 40 %) 5.2 [place] % (Auto) (3 - 14 %) 6.2 Eos % (Auto) (0 - 4 %) 0 Baso % (Auto) (0 - 2 %) 0.1 Plt Count, EDTA (150 - 400 K/uL) 153 PUBS MCHC (31 - 37 g/dL) 32 Microbiology Date/Time Procedure - Status Source Growth 04/240 MRSA Screen - RECD NOSE Assessment and Plan Problem List 1. Pneumonia Plan c/w zosyn and zithromax dc vancomycin 2. Hypoxia Plan still requiring oxygen therapy c/w supplemental oxygen 3. COPD (chronic obstructive pulmonary disease) Plan h/o COPD with co2 retention on ABG c/w duo nebs patient was on prednisone at home will start with prednisone 40mg po dialy 4. UTI (urinary tract infection) Plan urine cultures pending c/w current antibiotics zosyn and zithromax 5. Nicotine dependence Plan counselled patient about smoking cessation start nicotine patch 21mg po daily 6. Peripheral polyneuropathy Plan as per patient she was on lefluromide for this will hold it in veiw of sever einfection c/o leg pain will resume home dose of lyrica E&M Codes Rounding: Inpt-High/[id number]
[2016-04-25 18:39] VITALS: BP 108/57
[2016-04-25 22:48] VITALS: BP 135/77
[2016-04-26 03:00] VITALS: BP 138/68
[2016-04-26 07:09] VITALS: BP 123/65
[2016-04-26 10:22] VITALS: BP 122/74
[2016-04-26 14:28] VITALS: BP 120/64
[2016-04-26 18:12] VITALS: BP 113/69
--- NOTE | 2016-04-26 18:28 | Progress Note ---
Subjective General patient says she is feeling better Physical Exam Vital Signs / I&Os Vital Signs Date Time Temp Pulse Resp B/P Pulse O2 O2 Flow FiO2 Ox Delivery Rate 04/26 1812 98.1 98 16 113/69 97 Nasal 2.0 Cannula 04/26 1428 98.6 101 16 120/64 94 Nasal 2.0 Cannula 04/26 1350 2.0 04/26 1022 98.2 95 21 122/74 96 Nasal 2.0 Cannula 04/26 0815 Nasal 2.0 Cannula 04/26 0715 2.0 04/26 0709 97.9 100 19 123/65 96 Nasal 1.0 Cannula 04/26 0300 98.6 98 14 138/68 94 Nasal 1.0 Cannula 04/26 0114 1.0 04/25 2248 98.4 103 14 135/77 93 Nasal 1.0 Cannula 04/25 2144 Nasal 1.0 Cannula 04/25 1951 1.0 04/25 1839 98.4 99 16 108/57 93 Nasal 1.0 Cannula I&O 04/25 0800 04/25 1600 04/26 0000 Intake Total 1095 1780 814 Output Total 1175 1825 1125 Balance -80 -45 -311 General Appearance Alert, Oriented X3, No acute distress HEENT Atraumatic, PERRLA, Moist mucous membranes Lungs bilateral crackles Neck Supple, No JVD Cardiovascular Regular rate and rhythm, Normal S1 and S2 Abdomen Normal bowel sounds, Soft, No tenderness, No guarding Extremities No edema Neurological No lateralizing signs LAB Results Laboratory Tests 04/26 04/26 04/26 UNK 0900 1030 Chemistry Plasma Sodium (136 - 145 mmol/L) 144 Plasma Potassium (3.5 - 5.1 mmol/L) 3.6 Plasma Chloride (98 - 107 mmol/L) 107 CO2 (Enzymatic) (21 - 32 mmol/L) 28 BUN (7 - 18 mg/dL) 8 Creatinine (0.6 - 1.3 mg/dL) 0.6 Est GFR ( Amer) (mL/min) >60 Est GFR (Non-Af Amer) (mL/min) >60 Glucose (70 - 110 mg/dL) 107 Plasma Calcium (8.5 - 10.1 mg/dL) 8.1 Plasma Magnesium (1.8 - 2.4 mg/dL) Cancelled 1.4 Hematology WBC (4.5 - 11.5 K/uL) 13.8 RBC (4.00 - 5.20 M/uL) 5.11 Hgb (12.0 - 16.0 gm/dL) 14.9 Hct (36.0 - 46.0 %) 45.9 MCV (80 - 100 fL) 90 MCH (26 - 34 pg) 29 RDW (11.6 - 14.8 %) 16.1 Neut % (Auto) (50 - 75 %) 81.9 Lymph % (Auto) (25 - 40 %) 10.2 [place] % (Auto) (3 - 14 %) 6.8 Eos % (Auto) (0 - 4 %) 0.9 Baso % (Auto) (0 - 2 %) 0.2 Plt Count, EDTA (150 - 400 K/uL) 184 PUBS MCHC (31 - 37 g/dL) 33 Toxicology Vancomycin Trough Cancelled Assessment and Plan Problem List 1. Pneumonia Plan pt clinically improving switch zosyn to ceftriaxone 2. UTI (urinary tract infection) Plan urine culture growing klebsiella antibiotics changed to ceftriaxone 3. COPD (chronic obstructive pulmonary disease) Plan stable 4. Peripheral polyneuropathy Plan c/w lyrica and gabpentin continue holding vicodine in veiw of mental status change E&M Codes Rounding: Inpt-Moderate/[id number]
[2016-04-27 03:29] VITALS: BP 151/91
[2016-04-27 06:47] VITALS: BP 158/98
[2016-04-27 10:07] VITALS: BP 105/56
[2016-04-27 14:21] VITALS: BP 105/67
[2016-04-27] MEDS ORDERED: LEVOFLOXACIN500 MG PO (17:01)
--- NOTE | 2016-04-27 17:07 | Provider's Discharge Care Plan ---
Problem, Goal, Plan Problem List 1. Pneumonia Instructions: complete the course of antibiotic follow up with your PCP 2. Multiple lung nodules Instructions: You were noted to have multiple lung nodules which needs to be follwoed as an out patient
--- NOTE | 2016-05-06 16:18 | DISCHARGE SUMMARY ---
ADMIT DATE: 04/24/2016 DISCHARGE DATE: 04/27/2016 ADMITTING DIAGNOSES: 1. Altered mental status 2. Acute hypoxic, hypercapnic respiratory failure 3. Sepsis due to pneumonia 4. Urinary tract infection DISCHARGE DIAGNOSES: 1. Altered mental status, improved 2. Sepsis due to pneumonia 3. Urinary tract infection with Klebsiella pneumoniae 4. Acute hypoxic and hypercapnic respiratory failure, improved 5. Prediabetes 6. Hypertension 7. Rheumatoid arthritis 8. Polyneuropathy BRIEF HISTORY: A 71-year-old female patient with past medical history of hypertension, prediabetes, polyneuropathy, rheumatoid arthritis, was brought in by ambulance for altered mental status. In the emergency department, she was found to be confused and found to have extensive right lung infiltrate, suggesting pneumonia, with acute hypoxic hypercapnic respiratory failure. For this reason she was admitted to the hospital after initial treatment in the emergency department. HOSPITAL COURSE: The patient was admitted with altered mental status, possibly due to sepsis from pneumonia, and UTI, with acute hypoxic and hypercapnic respiratory failure. She was treated with IV antibiotics, initially with Zosyn and vancomycin. Her urine culture grew Klebsiella pneumoniae. Initially, during her first 2 days, she required supplemental oxygen. Eventually the patient improved and discharged home on oral antibiotic. PHYSICAL EXAMINATION: VITAL SIGNS: At the time of discharge were blood pressure 105/67, pulse rate 87, temperature 97.9, respiratory rate 16 per minute, saturations 90-94% on room air. HEENT: Head is atraumatic, normocephalic. Throat: No edema or swelling. Moist mucous membranes. LUNGS: Right-sided rhonchi present, bilateral air entry equal. HEART: S1, S2 normal. Regular rate and rhythm. EXTREMITIES: No edema. NEUROLOGIC: Grossly intact. LAB/IMAGING: At the time of discharge were WBC 11.8, which is improved from 15.6 at the time of admission, hemoglobin 16.1, hematocrit 49.4. Sodium 145, potassium 3.3, chloride 106, bicarbonate 34, BUN 14, creatinine 0.5, plasma calcium 8.7, magnesium 1.7, replaced. Liver function: Total bilirubin 0.7, direct bilirubin 0.2, AST 28, ALT 22, alkaline phosphatase 49, creatinine kinase 57. Troponin 0.06. BNP 56.3. Total protein 6, albumin 2.4, triglycerides 62, cholesterol 99, LDL 42, HDL 45, amylase 29, lipase 66, procalcitonin 0.5. ABG at the time of admission was pH 7.42, pCO2 of 56.3, pO2 of 57.6, bicarbonate 36, O2 saturations 88.8. INR 1 and PTT 35. Urinalysis was consistent with positive nitrites and urine WBC 1-3, bacteria many. Urine culture grew Klebsiella pneumoniae more than 100,000. Blood cultures, no growth. Influenza screen negative. Imaging: Chest x-ray on 04/24/2016 showed extensive right lung infiltrates, suggestive of pneumonia. DISCHARGE MEDICATIONS/INSTRUCTIONS: Complete the course of antibiotic for pneumonia and urinary tract infection. Follow up with primary care doctor. On chest x-ray, you were noted to have multiple lung nodules which need to be followed as an outpatient.
== END 2016-04-27 17:30 | disposition home or self-care (01) | DRG 584 ==
LOC: ED SRH 06:50 → CC SRH 09:11 → TRANS SRH 09:11 → CC SRH 11:22
PROVIDERS: ADMIT Emergency Medicine
DX: A41.9 Sepsis, unspecified organism (principal); J44.0 Chronic obstructive pulmonary disease with (acute) lower respiratory infection; J18.9 Pneumonia, unspecified organism; J96.02 Acute respiratory failure with hypercapnia; N39.0 Urinary tract infection, site not specified; B96.1 Klebsiella pneumoniae [K. pneumoniae] as the cause of diseases classified elsewhere; R91.8 Other nonspecific abnormal finding of lung field; R73.03 Prediabetes; G62.9 Polyneuropathy, unspecified; I10 Essential (primary) hypertension; M06.9 Rheumatoid arthritis, unspecified; F17.210 Nicotine dependence, cigarettes, uncomplicated